=== PATIENT | female | born 1955 | race Caucasian/White ===

== ENCOUNTER → 2017-04-28 | Day surgery (SDC) | payer OTHER ==
[~2017-04-28] MED LIST: ASPIRINEC PO; AZOR 5-40 MG T1 EACH PO; CALCIUM 500 +1 EAC2 PO; CRANBERRY405 MG PO; DYAZIDE 37.5/251 CAP PO; EFFEXOR XR PO; FISH OIL 1,0001 CAP PO; GLUCOSAMINE MSM; LEVOTHYROXINE75 MCG PO; LIPITOR PO; TRIAMTERENE-HC1 EACH PO
--- NOTE | ~2017-04-28 | OR ---
Unit #: [id number] #: [id number] Patient: JEZ PURDY [id number] [address] [place], [place] [address] [id number] O MR#: [id number] NAME: JEZ PURDY. ROOM: Date of Procedure: 04/28/2017 Admission Date: 04/28/2017 Surgeon: Bruce Moncada M.D. : 1955 Attending Physician: Bruce Moncada M.D. Primary Care Physician: Cleveland Linares M.D. OPERATIVE REPORT PRIMARY CARE PHYSICIAN Cleveland Linares M.D. PREOPERATIVE DIAGNOSES Colorectal cancer screening. The patient has a high risk of colon cancer. Her sister had colon cancer at the age of 28. PROCEDURE PERFORMED Colonoscopy up to cecum with excellent preparation and good visualization. POSTOPERATIVE DIAGNOSES The patient had [id number] sigmoid and descending colon diverticulosis. Otherwise, examination was normal up to cecum. The quality of the prep was excellent. No polyps were seen. The patient did not have any hemorrhoids. RECOMMENDATIONS Repeat colonoscopy in 5 years. SEDATION USED MAC. DESCRIPTION OF PROCEDURE Following detailed explanation of potential risks and complications of a colonoscopy, namely perforation, bleeding, and complications related to sedation, the patient was brought to GI lab and laid in the left lateral decubitus position. A digital rectal examination was performed, which was normal. Lubricated tip of the Olympus video colonoscope was inserted through the anus and advanced under direct vision. The scope was advanced and passed up to sigmoid into descending colon. Multiple small to medium-sized diverticula were seen in this area. The scope tip was then navigated all the way up to cecum with visualization of the ileocecal valve and the appendiceal orifice. Preparation was excellent with good visualization and photodocumentation was obtained. Successive segments of the colonic mucosa were examined upon withdrawal and appeared unremarkable. There being no polyps, mass lesions, or AVMs. Other than the diverticula seen earlier, no other abnormalities noted. The patient did not have any hemorrhoids at the anal verge. The scope was then withdrawn. The patient returned to recovery area. She tolerated the procedure without any postprocedure complications. Unit #: [id number] #: [id number] Patient: JEZ PURDY by... Leslie Ireland/amie TD: 04/28/2017 17:00 JOB #: [id number] CC: Cleveland Linares M.D. OPERATIVE REPORT Page 1 of 1 X Bruce Moncada MD X PROCEDURE OPERATIVE NOTE
== END | disposition home or self-care (01) ==
LOC: COPS 09:37
PROVIDERS: Internal Medicine Gastroenterology
PROC: 0DJD8ZZ Inspection of Lower Intestinal Tract, Via Natural or Artificial Opening Endoscopic (ICD-10-PCS; principal; 2017-04-28 11:00)
DX: Z12.11 Encounter for screening for malignant neoplasm of colon (principal); Z80.0 Family history of malignant neoplasm of digestive organs; K57.30 Diverticulosis of large intestine without perforation or abscess without bleeding; E03.9 Hypothyroidism, unspecified; I10 Essential (primary) hypertension; G47.30 Sleep apnea, unspecified; R32 Unspecified urinary incontinence; J45.909 Unspecified asthma, uncomplicated; Z79.899 Other long term (current) drug therapy; Z87.440 Personal history of urinary (tract) infections; Z90.710 Acquired absence of both cervix and uterus; Z98.890 Other specified postprocedural states; Z86.73 Personal history of transient ischemic attack (TIA), and cerebral infarction without residual deficits; Z98.1 Arthrodesis status
CPT/HCPCS: J2250